=== PATIENT | male | born 1970 | race Caucasian/White ===

== ENCOUNTER 2016-12-08 11:09 | Emergency (ER) | payer MEDICAID ==
[~2016-12-08] VITALS: Ht 193 cm; Wt 85.0 kg
[2016-12-08 11:17] VITALS: BP 128/87; PULSE 85; RESP 20; TEMP 98.1
[2016-12-08 11:20] VITALS: RESP 19; O2SAT 93
[2016-12-08] MEDS ORDERED: LORazepam 2 MG/ML VIAL IV PUSH ONE (11:30)
[2016-12-08] MEDS ORDERED: SODIUM CHLOR 0.9% 1000 ML INJ 1,000 ML IV SCH (11:30)
[2016-12-08] MEDS ORDERED: SODIUM CHLORIDE 0.9% FLUSH 10 ML FLUSH IVF PRN (11:30)
--- NOTE | 2016-12-08 11:32 | PD ---
HPI Chief Complaint: Seizure Time Seen by Provider: 11:13 Travel History International Travel<30 days: No Contact w/Intl Traveler<30days: No Traveled to known affect area: No History of Present Illness HPI This is a 46-year-old male who presents to the emergency department having had a witnessed seizure by a bystander. By the time paramedics arrived the bystander had left. The patient says he feels normal. He does acknowledge drinking alcohol but says he hasn't drank in 2-3 days and that's normal for him. He's never had a seizure before. We're unable to characterize the seizure because there is no witness and the patient is a poor historian. PFSH Past Medical History Anxiety: Yes Cardiovascular Problems: Yes ("UNSURE BUT SOMETHING WITH HEART") Diminished Hearing: No Immunizations Current: Yes Past Surgical History Ear Surgery: Yes (RIGHT PINNA) Other Surgery: Yes (LT THUMB) Social History Alcohol Use: Yes (HEAVY ETOH USE ) Tobacco Use: Yes (1 PPD) Substance Use: No Allergies-Medications (Allergen,Severity, Reaction): Coded Allergies: No Known Allergies (Unverified , 12/08/16) Reported Meds & Prescriptions Reported Meds & Active Scripts Active No Active Prescriptions or Reported Medications Review of Systems ROS Limitations: Poor Historian Physical Exam Narrative GENERAL: Disheveled, no acute distress SKIN: Focused skin assessment warm and dry. HEAD: Atraumatic. Normocephalic. EYES: Pupils equal and round. No injection or drainage. ENT: Moist mucous membranes NECK: Trachea midline. CARDIOVASCULAR: Regular rate and rhythm. No murmur appreciated. RESPIRATORY: Clear to auscultation. Breath sounds equal bilaterally. GASTROINTESTINAL: Abdomen soft, non-tender, nondistended. MUSCULOSKELETAL: No obvious deformities. NEUROLOGICAL: Awake and alert. No obvious cranial nerve deficits. No dysarthria or aphasia. No upper or lower extremity drift. No upper extremity ataxia. Visual atkinson intact. PSYCHIATRIC: Appropriate mood and affect; insight and judgment normal. Data Data Last Documented VS Vital Signs Date Time Temp Pulse Resp B/P (MAP) Pulse Ox O2 Delivery O2 Flow Rate FiO2 12/08/16 11:20 19 (101) 93 Nasal Cannula 2.00 12/08/16 11:17 98.1 85 Orders Orders Complete Blood Count With Diff (12/08/16 11:18) Ct Brain W/O Iv Contrast(Rout) (12/08/16 ) Blood Glucose (12/08/16 11:18) Ecg Monitoring (12/08/16 11:18) Iv Access Insert/Monitor (12/08/16 11:18) Oximetry (12/08/16 11:18) Comprehensive Metabolic Panel (12/08/16 11:18) Sodium Chloride 0.9% Flush (Ns Flush) (12/08/16 11:30) Magnesium (Mg) (12/08/16 11:18) Lorazepam Inj (Ativan Inj) (12/08/16 11:30) Sodium Chlor 0.9% 1000 Ml Inj (Ns 1000 M (12/08/16 11:30) Labs Laboratory Tests Test 12/08/16 11:15 White Blood Count 10.7 TH/MM3 Red Blood Count 4.49 MIL/MM3 Hemoglobin 15.5 GM/DL Hematocrit 44.9 % Mean Corpuscular Volume 100.0 FL Mean Corpuscular Hemoglobin 34.6 PG Mean Corpuscular Hemoglobin Concent 34.5 % Red Cell Distribution Width 12.7 % Platelet Count 73 TH/MM3 Mean Platelet Volume 8.8 FL Neutrophils (%) (Auto) 85.1 % Lymphocytes (%) (Auto) 7.0 % Monocytes (%) (Auto) 7.6 % Eosinophils (%) (Auto) 0.0 % Basophils (%) (Auto) 0.3 % Neutrophils # (Auto) 9.1 TH/MM3 Lymphocytes # (Auto) 0.7 TH/MM3 Monocytes # (Auto) 0.8 TH/MM3 Eosinophils # (Auto) 0.0 TH/MM3 Basophils # (Auto) 0.0 TH/MM3 CBC Comment AUTO DIFF Differential Total Cells Counted 100 Neutrophils % (Manual) 70 % Band Neutrophils % 17 % Lymphocytes % 7 % Monocytes % 4 % Neutrophils # (Manual) 9.5 TH/MM3 Metamyelocytes 2 % Differential Comment FINAL DIFF MANUAL Platelet Estimate LOW Platelet Morphology Comment NORMAL Blood Urea Nitrogen 12 MG/DL Creatinine 1.02 MG/DL Random Glucose 141 MG/DL Total Protein 7.4 GM/DL Albumin 3.4 GM/DL Calcium Level 8.4 MG/DL Magnesium Level 1.5 MG/DL Alkaline Phosphatase 81 U/L Aspartate Amino Transf (AST/SGOT) 105 U/L Alanine Aminotransferase (ALT/SGPT) 91 U/L Total Bilirubin 1.3 MG/DL Sodium Level 134 MEQ/L Potassium Level 3.7 MEQ/L Chloride Level 101 MEQ/L Carbon Dioxide Level 22.5 MEQ/L Anion Gap 11 MEQ/L Estimat Glomerular Filtration Rate 79 ML/MIN MDM Medical Decision Making Medical Screen Exam Complete: Yes Emergency Medical Condition: Yes Medical Record Reviewed: Yes (in 2013 the patient had 50% bands CBC) Interpretation(s) White blood cell count of 10.7 17% bandemia Mild hyponatremia Transaminitis Differential Diagnosis Seizure, alcohol withdrawal, electrolyte abnormality, subdural hematoma, subarachnoid hemorrhage Narrative Course This is a 46-year-old male who presents to the emergency department having had a suspected seizure. The patient doesn't remember anything and has no complaints. He is an alcoholic. Labs demonstrate a bandemia which is unusual but looking back at 2013 he had a profound bandemia of 50% so this is chronic and not acute. CT scan is reassuring. I think patient's seizure may be in the setting of early alcohol withdrawal. He was given 2 mg of IV Ativan. I think he can be discharged he was given referral to [facility]. Diagnosis Primary Impression: Seizure Additional Impression: Bandemia without diagnosis of specific infection Referrals: [facility] Patient Instructions: General Instructions Additional Instructions: If you develop severe worsening headache, persistent vomiting, numbness, weakness, difficulty walking or difficulty talking return to the emergency department immediately. Sometimes in the emergency department we did not identify the cause of headaches. You have a large amount of bands on your cbc. This should be followed by a primary care physician and likely a corporate job titles. Med/Other Pt SpecificInfo: No Change to Meds Scripts No Active Prescriptions or Reported Meds Disposition: 01 DISCHARGE HOME Condition: Stable Alexa Reza MD Dec 08, 2016 11:32
[2016-12-08 11:42] LABS: AUTOMATED NEUTROPHIL # 9.1 TH/MM3 (1.8-7.7); BASOPHIL % 0.3 % (0.0-2.0); HEMATOCRIT 44.9 % (39.0-51.0); LYMPHOCYTE # 0.7 TH/MM3 (1.0-4.8); MEAN CORPUSCULAR HEMOGLOBIN 34.6 PG (27.0-34.0); MEAN CORPUSCULAR HGB CONC 34.5 % (32.0-36.0); MONO % 7.6 % (0.0-8.0); NEUT % 85.1 % (16.0-70.0); PLATELET COUNT 73 TH/MM3 (150-450); RED BLOOD COUNT 4.49 MIL/MM3 (4.50-5.90); RED CELL DISTRIBUTION WIDTH 12.7 % (11.6-17.2); WHITE BLOOD COUNT 10.7 TH/MM3 (4.0-11.0)
[2016-12-08 11:45] LABS: HEMO FLAGS AUTO DIFF
[2016-12-08 11:58] LABS: ALKALINE PHOSPHATASE 81 U/L (45-117); ALT (GPT) 91 U/L (12-78); TOTAL BILIRUBIN ADULT 1.3 MG/DL (0.2-1.0)
[2016-12-08 11:59] LABS: ANION GAP 11 MEQ/L (5-15); AST (GOT) 105 U/L (15-37); BICARBONATE 22.5 MEQ/L (21.0-32.0); BLOOD UREA NITROGEN 12 MG/DL (7-18); CHLORIDE 101 MEQ/L (98-107); GLOMERULAR FILTRATION RATE 79 ML/MIN (>89); MAGNESIUM 1.5 MG/DL (1.5-2.5); SODIUM (NA) 134 MEQ/L (136-145)
[2016-12-08 12:02] LABS: POTASSIUM 3.7 MEQ/L (3.5-5.1)
--- NOTE | 2016-12-08 12:21 | RADRPT ---
EXAM DATE/TIME: 12/08/2016 11:53 [facility] COMPARISON: CT BRAIN W/O CONTRAST, January 23, 2014, 21:28. INDICATIONS : Fall, seizures. RADIATION DOSE: 56.35 CTDIvol (mGy) MEDICAL HISTORY : Cardiovascular disease. ETOH SURGICAL HISTORY : Left thumb ENCOUNTER: Initial ACUITY: 1 day PAIN SCALE: Non-responsive LOCATION: cranial TECHNIQUE: Multiple contiguous axial images were obtained of the head. Using automated exposure control and adj ustment of the mA and/or kV according to patient size, radiation dose was kept as low as reasonably a chievable to obtain optimal diagnostic quality images. DICOM format image data is available electro nically for review and comparison. FINDINGS: CEREBRUM: The ventricles are normal for age. No evidence of midline shift, mass lesion, hemorrhage or acute in farction. No extra-axial fluid collections are seen. POSTERIOR FOSSA: The cerebellum and brainstem are intact. The 4th ventricle is midline. The cerebellopontine angle i s unremarkable. EXTRACRANIAL: The visualized portion of the orbits is intact. SKULL: The calvaria is intact. No evidence of skull fracture. CONCLUSION: Negative for acute process. Telly Gonzalez MD FACR on December 08, 2016 at 12:19 Board Certified Radiologist. This report was verified electronically.
[2016-12-08 12:39] LABS: BANDS 17 % (0-6); METAMYELOCYTES 2 % (0-1); NEUTROPHIL # MANUAL DIFF 9.5 TH/MM3 (1.8-7.7); POLYS (SEG NEUTROPHILS) 70 % (16-70); WBC DIFF SAMPLE 100
[2016-12-08 12:47] LABS: PLATELET ESTIMATE SMEAR LOW (NORMAL); PLATELET MORPHOLOGY NORMAL (NORMAL); SCAN/DIFF FINAL DIFF MANUAL
== END 2016-12-08 13:24 | disposition home or self-care (01) ==
LOC: NEPE 11:09
DX: R56.9 Unspecified convulsions (principal); D72.825 Bandemia; F41.9 Anxiety disorder, unspecified; F17.200 Nicotine dependence, unspecified, uncomplicated; E87.1 Hypo-osmolality and hyponatremia
CPT/HCPCS: 70450; 80053; 83735; 85007; 85027; 96374; 99285; J2060; J7030